=== PATIENT | male | born 1965 | race Caucasian/White ===

== ENCOUNTER → 2016-07-28 | Outpatient (CLI) | payer OTHER ==
--- NOTE | 2016-07-29 13:15 | FL ---
Left wrist fluoroscopic-guided arthrogram injection. 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 Fluoroscopy time: 1.15 minutes. Procedures: 1. Left wrist radiographs and fluoroscopy. 2. Left wrist arthrogram. FINDINGS: Initial wrist radiographs show widened scapholunate interval with osteoarthritic change at the base o f the thumb and triscaphe joint with some fragmented spurs or loose bodies measuring 3 mm. There is a lso significant loss of joint space along the radioscaphoid joint space. There is degenerative change with deepening of the sigmoid notch at the distal radial ulnar joint. An additional posterior loose body measures 5 mm. Suggestion of intraosseous geodes within both the capitate and hamate. TECHNIQUE: The procedure, risks, and alternatives, were discussed with the patient, who requested that virgilio kaur. The consent form was signed, and teach-back occurred. The site/side of the procedure was marked with a line with participation by the patient. The accompan kenneth paperwork was verified for consistency. Medication reconciliation was performed by ancillary personnel. A critical pause was performed with assisting personnel just prior to the procedure, and the patient' s identity was confirmed using 2 identifiers. Imaging guidance was utilized to select the precise skin entry point just prior to the procedure. The left wrist was prepped and draped in the usual sterile fashion and local 1% lidocaine anesthesia was instilled. Under fluoroscopic guidance, a 25 gauge needle was introduced into the dorsal left wrist joint along the radial aspect. Appropriate needle tip position was confirmed after small amount of contrast injec tion. Approximately 3 mL of a mixture of Omnipaque iodinated contrast and gadolinium was injected int o the wrist joint from a 10ml syringe (2.5 mL Omnipaque 240 at 7.5 mL saline and gadolinium mixture ( 0.5 mL MultiHance mixed into a 50 mL sterile saline bag). The needle was then removed. The patient tolerated the procedure well. There was no immediate complication. After the procedure, the patient's condition was unchanged. Estimated blood loss was minimal. IMPRESSION: Technically successful left wrist arthrogram injection for MRI. No immediate complication. The patien t was instructed on routine postprocedure precautions, including monitoring for signs of infection.
--- NOTE | 2016-07-30 03:37 | MR ---
EXAMINATION TYPE: MR wrist arthrogram LT w con DATE OF EXAM: 07/28/2016 3:29 PM COMPARISON: Correlation radiographs same date. HISTORY: 50-year-old male osteoarthritis of carpometacarpal joint, Pain, Swelling Technique: Multiplanar, multisequence images of the left wrist were obtained after intra-articular co ntrast injection. Please refer to arthrogram injection of the same day for further details. FINDINGS: There is adequate contrast distention of the wrist joint but with contrast extending into the midcarp al compartment through a tear of the scapholunate ligament. Some intermediate signal is present in th e expected region of the ligament suggesting scar tissue formation. The lunotriquetral ligament appea rs intact. There is degenerative change along the radioscaphoid joint with loss of articular cartilage. There is marginal spurring about the joint with cystic change in the distal scaphoid pole measuring up to 5 m m. There is additional moderate to advanced, advanced degenerative change in the triscaphe joint and the first CMC joint. Degenerative change extends to also involve the lunocapitate joint where there is joint space narrowi ng and pkwm-en-iuct abutment. Additional degenerative changes involve a type II lunate with cystic ch anamaria at the apex of the hamate. Additional larger intra-articular geodes are present within the capit ate measuring up to 1.2 cm and within the hamate bone measuring up to 1.3 cm. There is suggestion of some additional articular cartilage loss along the distal aspect of the capitate hamate articulation. While there is degenerative change with bony remodeling and marginal spurring at the distal radial ul linda joint, there is no extension of contrast into the distal radial ulnar joint. There is some degene rative signal within the triangular fibrocartilage which remains grossly intact. There is a prominent 1.2 x 1.3 cm multilocular ganglion cyst along the ulnar palmar aspect of the dis ian carpal row and additional ganglion cyst measuring 1.4 x 1.0 cm just proximal to the pisiform. The se ganglion cysts fill with contrast from the intra-articular injection. There was some inadvertent injection of contrast into the second and third dorsal extensor compartmen ts. Otherwise, the visualized flexor and extensor tendons otherwise show no gross abnormality. The me allen nerve is normal caliber in the carpal tunnel. IMPRESSION: 1. Findings compatible with SLAC wrist and additional moderate to advanced osteoarthritic changes at the first CMC and triscaphe joints. 2. 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 3. A couple prominent ganglion cysts measuring up to 1.4 cm along the ulnar palmar aspect of the carp us. 4. While there are degenerative changes at the DRUJ, there is no abnormal extension of contrast into this joint space compatible with an intact TFC.
== END | disposition home or self-care (01) ==
LOC: RADFLMAIN 09:04
PROVIDERS: ATTEND Plastic Surgery
DX: M19.032 Primary osteoarthritis, left wrist (principal); M25.832 Other specified joint disorders, left wrist
CPT/HCPCS: 25246; 73115; 73222; Q9966; A9577

== ENCOUNTER → 2016-09-22 | Outpatient (CLI) | payer OTHER ==
--- NOTE | 2016-09-22 15:21 | MR ---
EXAMINATION TYPE: MR brain wo con DATE OF EXAM: 09/22/2016 1:50 PM COMPARISON: NONE HISTORY: Postconcussive syndrome, memory loss, mosqueda, dizzy spells CONTRAST: Performed utilizing 0 mL intravenous MultiHance gadolinium contrast. TECHNIQUE: Multiplanar, multiecho imaging on a 3.0 Sinai magnet is performed through the brain. Stud y is performed within 24 hours of arrival to the hospital. The craniovertebral junction is normal. The pituitary is normal. Diffusion-weighted imaging is performed. No abnormal hyperintensity is present to suggest an acute i ntracranial infarct or acute ischemic change. Signal throughout the brain appears normal. No focal hyperintensities on T2 and inversion recovery we ighted sequences are evident. Cortical margins are normal signal. No focal effacement of sulci is chris dent. Ventricles and sulci are appropriate for the patient age. Cerebellar pontine angles are normal. Internal auditory canals are normal. Optic chiasm is normal. No rmal vascular flow voids are evident. IMPRESSIONS: 1. Normal MRI brain
== END | disposition home or self-care (01) ==
LOC: RADMRIMAIN 13:06
PROVIDERS: ATTEND Psychiatry & Neurology Neurology
DX: F07.81 Postconcussional syndrome (principal)
CPT/HCPCS: 70551

== ENCOUNTER → 2018-02-06 | Outpatient (CLI) | payer OTHER ==
--- NOTE | 2018-02-06 11:03 | MR ---
EXAMINATION TYPE: MR blake/scot wo con DATE OF EXAM: 02/06/2018 COMPARISON: NONE HISTORY: Neck pain, low back pain TECHNIQUE: T1 and T2 axial and sagittal images of the lumbar spine are submitted. FINDINGS: There is no abnormal signal seen within the visualized spinal cord or paraspinal soft tissu es. At L1-2 there is disc desiccation but no evidence of herniation or canal stenosis. Neural foramina pa tent. Mild hypertrophy of the facets. At L2-3 there is disc desiccation and mild circumferential disc bulging with mild effacement of theca l sac but no canal stenosis or foraminal encroachment. At L3-4 there is disc desiccation and mild circumferential disc bulging with mild effacement of theca l sac with borderline central stenosis. Neural foramina remain patent. Vertebral body hemangioma of L 4 incidentally noted. At L4-5 there is loss of disc space and signal. Small focal central disc herniation results in mild e ffacement of thecal sac. Bilateral mild foraminal encroachment greater on the right neck At L5-S1 there is no disc herniation or canal stenosis. No foraminal encroachment. Mild facet arthrop athy. IMPRESSION: 1. Small central disc herniation L4-L5 with mild effacement of thecal sac. Facet arthropathy contribu raymon to mild bilateral foraminal encroachment. 2. Multilevel mild degenerative disc disease. Disc bulging and hypertrophic changes L3-L4 results in borderline central stenosis EXAMINATION TYPE: MR blake/scot wo con DATE OF EXAM: 02/06/2018 COMPARISON: NONE HISTORY: Neck pain, low back pain TECHNIQUE: T1 sagittal and coronal, T2 sagittal, and gradient echo axial views of the cervical spine are submitted. FINDINGS: The cranial cervical junction is preserved. There is no abnormal signal seen within the sp inal cord or paraspinal soft tissues. At C2-3 there is degenerative disc disease with no foraminal encroachment or canal stenosis. At C3-4 there is moderate to severe degenerative disc disease with uncovertebral joint hypertrophy. T here is broad-based central and right paracentral disc bulging but no canal stenosis. Moderate right foraminal encroachment. At C4-5 there is severe degenerative disc disease with posterior spondylosis. Broad-based disc bulgin g with hypertrophic spurring noted including uncovertebral joint and facet hypertrophy. Mild effaceme nt of thecal sac but no spinal cord contact. Moderate bilateral foraminal encroachment. At C5-6 there is severe degenerative disc disease. Hypertrophic change of the facets and uncovertebra l joints result in severe bilateral foraminal encroachment. Mild to moderate effacement of thecal sac . Borderline central stenosis. At C6-7 there is degenerative disc disease with uncovertebral joint hypertrophy. Neural foramina shira in patent. No canal stenosis or focal disc herniation. At C7-T1 there is no disc herniation or canal stenosis. No foraminal encroachment. IMPRESSION: 1. Multilevel moderate to severe degenerative disc disease with most marked findings at levels C3-C7 . 2. Significant foraminal encroachment on the right at C4-5 and bilaterally at C4-5 and C5-C6. 3. Disc bulging and hypertrophic changes result in borderline canal stenosis at C5-C6.
== END | disposition home or self-care (01) ==
LOC: RADMRIMAIN 09:11
PROVIDERS: ATTEND Physician Assistant
DX: M48.061 Spinal stenosis, lumbar region without neurogenic claudication (principal); M48.02 Spinal stenosis, cervical region; M51.26 Other intervertebral disc displacement, lumbar region; M50.222 Other cervical disc displacement at C5-C6 level; M51.36 Other intervertebral disc degeneration, lumbar region; M50.31 Other cervical disc degeneration, high cervical region; M46.86 Other specified inflammatory spondylopathies, lumbar region; Z88.0 Allergy status to penicillin
CPT/HCPCS: 72141; 72148

== ENCOUNTER 2021-09-07 20:25 | Emergency (ER) | payer OTHER ==
[2021-09-07] MEDS ORDERED: IPRATROPIUM-ALBUTEROL 3 ML NEB INHALATION STA (22:39)
[2021-09-07] MEDS ORDERED: predniSONE 50 MG TAB PO STA (22:39)
[2021-09-07] MEDS ORDERED: SODIUM CHLORIDE 0.9% 500 ML 500 ML IV STA (22:39)
[2021-09-07] MEDS ORDERED: ALBUTEROL NEBULIZED 2.5 MG/3 ML INHALATION STA (22:39)
[2021-09-07 23:01] VITALS: TEMP 98.5
[2021-09-07 23:47] LABS: Basophils # (A) 0.1 k/uL (0-0.2); Basophils % (A) 1 %; Eosinophils # (A) 0.2 k/uL (0-0.7); Eosinophils % (A) 2 %; HCT 46.1 % (39.0-53.0); HGB 15.3 gm/dL (13.0-17.5); Lymphocytes # (A) 2.2 k/uL (1.0-4.8); Lymphocytes % (A) 24 %; MCH 30.1 pg (25.0-35.0); MCHC 33.2 g/dL (31.0-37.0); MCV 90.8 fL (80.0-100.0); Mean Platelet Volume 7.1; Monocytes % (A) 11 %; Neutrophils # (A) 5.7 k/uL (1.3-7.7); Neutrophils % (A) 61 %; Platelet Count 247 k/uL (150-450); RBC 5.08 m/uL (4.30-5.90); RDW 13.1 % (11.5-15.5); WBC 9.3 k/uL (3.8-10.6)
--- NOTE | 2021-09-07 23:57 | XR ---
EXAMINATION TYPE: XR chest 2V DATE OF EXAM: 09/07/2021 COMPARISON: 11/25/2014 HISTORY: Chest pain TECHNIQUE: FINDINGS: Heart and mediastinum are normal. Lungs are clear. Diaphragm is normal. Bony thorax appears normal. There are chest leads. IMPRESSION: Normal chest. No change.
[2021-09-07 23:58] LABS: Albumin 4.3 g/dL (3.5-5.0); Calcium 8.8 mg/dL (8.4-10.2); Potassium 4.2 mmol/L (3.5-5.1); Total Bilirubin 0.5 mg/dL (0.2-1.3); Total Protein 7.2 g/dL (6.3-8.2)
[2021-09-08 00:10] LABS: INR 0.9 (<1.2); Partial Thromboplastin Time 25.5 sec (22.0-30.0); Prothrombin Time 9.8 sec (9.0-12.0)
[2021-09-08 00:26] LABS: Influenza A Not Detected (Not Detectd); Influenza B Not Detected (Not Detectd)
--- NOTE | 2021-09-08 00:44 | ED ---
General Adult HPI - General Chief complaint: Recheck/Abnormal Lab/Rx Stated complaint: Body Aches,Fatigue Time Seen by Provider: 09/07/21 22:23 Source: patient Mode of arrival: ambulatory Limitations: no limitations - History of Present Illness Initial comments: Patient presents with a cough and malaise. He is having some generalized muscle aches and pains. He has a cough. He has no back pain. He has no chest pain or pressure or tightness. He has no nausea or vomiting. He has no focal weakness. He wasn't doing anything when he began to feel this way. He has no palpitations. He has no swelling in the arms or legs. - Related Data Previous Rx's Medication Instructions Recorded Azithromycin [Zithromax Z-pack (6 250 mg PO DIRECTED 5 Days #6 tab 09/08/21 tabs)] predniSONE 50 mg PO DAILY #3 tab 09/08/21 Allergies Allergy/AdvReac Type Severity Reaction Status Date / Time Penicillins Allergy Unknown Verified 09/07/21 22:55 Childhood Review of Systems ROS Statement: Those systems with pertinent positive or pertinent negative responses have been documented in the HPI. ROS Other: All systems not noted in ROS Statement are negative. Past Medical History Past Medical History: No Reported History History of Any Multi-Drug Resistant Organisms: MRSA Date of last positivie culture/infection: 01/01/2013 MDRO Source:: face Past Surgical History: No Surgical Hx Reported Past Psychological History: No Psychological Hx Reported Smoking Status: Current every day smoker Past Alcohol Use History: None Reported Past Drug Use History: None Reported General Exam Limitations: no limitations General appearance: alert, in no apparent distress Head exam: Present: atraumatic, normocephalic, normal inspection Eye exam: Present: normal appearance, PERRL, EOMI. Absent: scleral icterus, conjunctival injection, periorbital swelling ENT exam: Present: normal exam, mucous membranes moist Neck exam: Present: normal inspection. Absent: tenderness, meningismus, lymphadenopathy Respiratory exam: Present: wheezes. Absent: respiratory distress, rales, rhonch i, stridor Cardiovascular Exam: Present: regular rate, normal rhythm, normal heart sounds. Absent: systolic murmur, diastolic murmur, rubs, gallop, clicks GI/Abdominal exam: Present: soft, normal bowel sounds. Absent: distended, tenderness, guarding, rebound, rigid Extremities exam: Present: normal inspection, full ROM, normal capillary refill. Absent: tenderness, pedal edema, joint swelling, calf tenderness Back exam: Present: normal inspection Neurological exam: Present: alert, oriented X3, CN II-XII intact Psychiatric exam: Present: normal affect, normal mood Skin exam: Present: warm, dry, intact, normal color. Absent: rash Course Vital Signs 09/07/21 09/07/21 09/08/21 20:28 23:00 00:09 Temperature 98.3 F 98.5 F Pulse Rate 94 73 77 Respiratory 18 18 Rate Blood Pressure 151/73 129/84 O2 Sat by Pulse 98 99 Oximetry 09/08/21 00:20 Temperature Pulse Rate 78 Respiratory Rate Blood Pressure O2 Sat by Pulse Oximetry Medical Decision Making - Medical Decision Making Patient presents with cough and malaise. Labs are normal. X-rays negative. He did have some wheezing. I gave her breathing treatments and steroids. He likely has a bronchitis. His vital signs are normal. He tolerates oral intake. He is stable for discharge. - Lab Data Result diagrams: 09/07/21 23:04 09/07/21 23:04 Lab Results 09/07/21 09/07/21 09/07/21 Range/Units 23:04 23:04 23:04 WBC 9.3 (3.8-10.6) k/uL RBC 5.08 (4.30-5.90) m/uL Hgb 15.3 (13.0-17.5) gm/dL Hct 46.1 (39.0-53.0) % MCV 90.8 (80.0-100.0) fL MCH 30.1 (25.0-35.0) pg MCHC 33.2 (31.0-37.0) g/dL RDW 13.1 (11.5-15.5) % Plt Count 247 (150-450) k/uL MPV 7.1 Neutrophils % 61 % Lymphocytes % 24 % Monocytes % 11 % Eosinophils % 2 % Basophils % 1 % Neutrophils # 5.7 (1.3-7.7) k/uL Lymphocytes # 2.2 (1.0-4.8) k/uL Monocytes # 1.0 (0-1.0) k/uL Eosinophils # 0.2 (0-0.7) k/uL Basophils # 0.1 (0-0.2) k/uL PT 9.8 (9.0-12.0) sec INR 0.9 (<1.2) APTT 25.5 (22.0-30.0) sec Sodium (137-145) mmol/L Potassium (3.5-5.1) mmol/L Chloride (98-107) mmol/L Carbon Dioxide (22-30) mmol/L Anion Gap mmol/L BUN (9-20) mg/dL Creatinine (0.66-1.25) mg/dL Est GFR (CKD-EPI)AfAm (>60 ml/min/1.73 sqM) Est GFR (CKD-EPI)NonAf (>60 ml/min/1.73 sqM) Glucose (74-99) mg/dL Calcium (8.4-10.2) mg/dL Magnesium (1.6-2.3) mg/dL Total Bilirubin (0.2-1.3) mg/dL AST (17-59) U/L ALT (4-49) U/L Alkaline Phosphatase (38-126) U/L Troponin I (0.000-0.034) ng/mL Total Protein (6.3-8.2) g/dL Albumin (3.5-5.0) g/dL Lipase (23-300) U/L Influenza Type A (PCR) Not Detected (Not Detectd) Influenza Type B (PCR) Not Detected (Not Detectd) RSV (PCR) Not Detected (Not Detectd) SARS-CoV-2 (PCR) Not Detected (Not Detectd) 09/07/21 09/07/21 Range/Units 23:04 23:04 WBC (3.8-10.6) k/uL RBC (4.30-5.90) m/uL Hgb (13.0-17.5) gm/dL Hct (39.0-53.0) % MCV (80.0-100.0) fL MCH (25.0-35.0) pg MCHC (31.0-37.0) g/dL RDW (11.5-15.5) % Plt Count (150-450) k/uL MPV Neutrophils % % Lymphocytes % % Monocytes % % Eosinophils % % Basophils % % Neutrophils # (1.3-7.7) k/uL Lymphocytes # (1.0-4.8) k/uL Monocytes # (0-1.0) k/uL Eosinophils # (0-0.7) k/uL Basophils # (0-0.2) k/uL PT (9.0-12.0) sec INR (<1.2) APTT (22.0-30.0) sec Sodium 135 L (137-145) mmol/L Potassium 4.2 (3.5-5.1) mmol/L Chloride 101 (98-107) mmol/L Carbon Dioxide 26 (22-30) mmol/L Anion Gap 8 mmol/L BUN 17 (9-20) mg/dL Creatinine 1.17 (0.66-1.25) mg/dL Est GFR (CKD-EPI)AfAm 80 (>60 ml/min/1.73 sqM) Est GFR (CKD-EPI)NonAf 69 (>60 ml/min/1.73 sqM) Glucose 100 H (74-99) mg/dL Calcium 8.8 (8.4-10.2) mg/dL Magnesium 2.0 (1.6-2.3) mg/dL Total Bilirubin 0.5 (0.2-1.3) mg/dL AST 23 (17-59) U/L ALT 19 (4-49) U/L Alkaline Phosphatase 76 (38-126) U/L Troponin I <0.012 (0.000-0.034) ng/mL Total Protein 7.2 (6.3-8.2) g/dL Albumin 4.3 (3.5-5.0) g/dL Lipase 52 (23-300) U/L Influenza Type A (PCR) (Not Detectd) Influenza Type B (PCR) (Not Detectd) RSV (PCR) (Not Detectd) SARS-CoV-2 (PCR) (Not Detectd) Disposition Clinical Impression: Bronchitis Disposition: HOME SELF-CARE Condition: Good Instructions (If sedation given, give patient instructions): Acute Bronchitis (ED) Prescriptions: predniSONE 50 mg PO DAILY #3 tab Azithromycin [Zithromax Z-pack (6 tabs)] 250 mg PO DIRECTED 5 Days #6 tab Is patient prescribed a controlled substance at d/c from ED?: No Referrals: Angela Calvillo DO [Primary Care Provider] - 1-2 days Lary Mei MD [STAFF PHYSICIAN] - 1-2 days Time of Disposition: 00:42
[2021-09-08 01:15] VITALS: BP 133/74; PULSE 81; RESP 16
== END 2021-09-08 01:03 | disposition home or self-care (01) ==
LOC: EC 20:25
DX: J40 Bronchitis, not specified as acute or chronic (principal); F17.200 Nicotine dependence, unspecified, uncomplicated; Z20.822 Contact with and (suspected) exposure to COVID-19; Z88.0 Allergy status to penicillin
CPT/HCPCS: 36415; 94640; 93005; 83880; 80053; 83690; 83735; 84484; 85025; 85610; 85730; 87636; 71046; 99284; J7512

== ENCOUNTER → 2021-10-06 | Outpatient (CLI) | payer OTHER ==
--- NOTE | 2021-10-06 21:55 | CTL ---
EXAMINATION TYPE: CT Low Dose Lung DATE OF EXAM ORDERED: 10/06/2021 HISTORY: Tobacco use. Lung cancer screening CT DLP: 98.[address] CTDI: 2.4 mGy Automated exposure control for dose reduction was used. SCREENING VISIT: Baseline COMPARISON: None available TECHNIQUE: Low dose computed tomography scan was performed through the chest at 1 mm thick sections a nd reconstructed images in multiple planes at 1 mm and [address] DIAGNOSTIC QUALITY: Satisfactory FINDINGS: LUNG NODULES: Multiple variable sized calcified granulomas up to 8mm. Cluster of nodules is seen at the lateral aspect of the right upper lobe measuring up to 5 mm, image #131. 5 mm nodule is seen at the lateral aspect of the right lower lobe image #211. LUNGS: COPD: Severity: Mild Fibrosis: Severity: None Lymph nodes: Scattered partially calcified hilar and mediastinal lymph nodes measuring up to 14 mm in subcarinal group likely related to previous granulomatous infection. Other findings: Diffuse bronchial thickening which could be related to chronic bronchitis. RIGHT PLEURAL SPACE: Effusion: None Calcification: None Thickening: None Pneumothorax: None LEFT PLEURAL SPACE: Effusion: None Calcification: None Thickening: None Pneumothorax: None HEART: Heart Size: Normal Coronary Calcification: None Pericardial Effusion: None OTHER FINDINGS: Upper abdomen: None Bony thorax: Degenerative changes of the mid to lower thoracic spine. Supraclavicular region: None Other: Minimal bilateral gynecomastia changes. IMPRESSION: Scattered calcified pulmonary granulomas measuring up to 8mm with a few noncalcified pulm onary nodules measuring up to 5 mm as described above. Prominent partially calcified hilar and medias tinal lymph nodes measuring up to 14 mm, for which a follow-up CT scan in 3 months is advised. Other incidental findings as described above. CT LUNG RAD AND CT CHEST RECOMMENDATION: Lung-Rad 2 Benign Appearance or Behavior: Continue annual sc reening with LDCT in 12 months. S Modifier (other clinically significant findings): Enlarged lymph nodes as described above.
== END | disposition home or self-care (01) ==
LOC: RADCTMAIN 17:10
PROVIDERS: ATTEND Internal Medicine Critical Care Medicine
DX: Z12.2 Encounter for screening for malignant neoplasm of respiratory organs (principal); Z87.891 Personal history of nicotine dependence
CPT/HCPCS: 71271

== ENCOUNTER → 2022-12-03 | Outpatient (CLI) | payer OTHER ==
--- NOTE | 2022-12-03 09:57 | CTL ---
EXAMINATION TYPE: CT Low Dose Lung DATE OF EXAM ORDERED: 12/03/2022 HISTORY: 57-year-old male Z7.891, personal history of nicotine dependence, current smoker, 36 pack-ye ar history. Lung cancer screening CT DLP: 80.[address] CTDI: 2.1 mGy Automated exposure control for dose reduction was used. SCREENING VISIT: Annual follow-up COMPARISON: 10/06/2021 TECHNIQUE: Low dose computed tomography scan was performed through the chest with coronal and sagitta l reconstructions. CT DIAGNOSTIC QUALITY: Satisfactory FINDINGS: Heart is normal size without pericardial effusion. Aorta normal caliber with conventional arch vessel branching anatomy. Scattered calcified and noncalcified, nonenlarged mediastinal and hilar lymph nodes are redemonstrate d. * Possible new 7 mm endobronchial nodule right midlung, axial image 158. * Numerous scattered calcified granulomas are redemonstrated. * Some clustered nodularity lateral right upper lobe remains unchanged. * No new or enlarging pulmonary nodules are identified. Mild centrilobular emphysema. Mild to moderate diffuse bronchial wall thickening. Visualized upper abdomen shows no gross abnormality. Moderate degenerative disc disease T9-T10 and mild in the mid thoracic spine. IMPRESSION: 1. Lung RADS Category 4A (suspicious, 5-15% chance of malignancy); either some mucoid debris versus p ossible new 7 mm endobronchial nodule right midlung, axial image 158. Three-month follow-up low-dose CT chest. 2. COPD with mild emphysema and evidence of prior granulomatous disease. Recommend smoking cessation. CT LUNG RAD AND CT CHEST RECOMMENDATION: Lung-Rad 4A Suspicious: Follow-up 3 month LDCT or PET/CT may be used when there is a > 8 mm solid component. S Modifier (other clinically significant findings): None
== END | disposition home or self-care (01) ==
LOC: RADCTMAIN 08:46
PROVIDERS: ATTEND Internal Medicine Critical Care Medicine
DX: Z12.2 Encounter for screening for malignant neoplasm of respiratory organs (principal); J43.2 Centrilobular emphysema; F17.210 Nicotine dependence, cigarettes, uncomplicated
CPT/HCPCS: 71271